=== PATIENT | male | born 1995 | race Caucasian/White ===

== ENCOUNTER 2018-04-09 13:37 | Emergency (ER) | payer MEDICARE, BC ==
[2018-04-09] MEDS: ACETAMINOPHEN 325 MG TAB PO (14:36)
== END 2018-04-09 16:52 | disposition home or self-care (01) ==
LOC: FTE 13:37
DX: S69.91XA Unspecified injury of right wrist, hand and finger(s), initial encounter (principal); J45.909 Unspecified asthma, uncomplicated; W22.8XXA Striking against or struck by other objects, initial encounter; Y92.9 Unspecified place or not applicable
CPT/HCPCS: 73130; 73130-RT; 99283-25

== ENCOUNTER 2018-12-21 23:43 | Inpatient (IN) | payer OTHER, BC ==
[2018-12-21] MEDS: SODIUM CHLORIDE 0.9% 1L BAG IV* (23:55)
[2018-12-22 00:21] LABS: ADD MAN DIFF? NO
[2018-12-22 00:23] LABS: BASOPHILS % 0.3 % (0.0-2.0); EOSINOPHILS # 0.3 10^3/ul (0.0-0.5); EOSINOPHILS % 3.1 % (0.0-7.0); HEMATOCRIT 44.8 % (42.0-52.0); HEMOGLOBIN 14.6 g/dl (14.0-18.0); LYMPHOCYTES # 1.2 10^3/ul (0.8-2.9); LYMPHOCYTES % 13.5 % (15.0-51.0); MEAN CORPUSCULAR HEMOGLOBIN 27.1 pg (29.0-33.0); MEAN CORPUSCULAR HGB CONC 32.6 g/dl (32.0-37.0); MEAN CORPUSCULAR VOLUME 83.1 fl (82.0-101.0); MEAN PLATELET VOLUME 9.5 fl (7.4-10.4); MONOCYTE # 0.6 10^3/ul (0.3-0.9); MONOCYTES % 6.6 % (0.0-11.0); NEUTROPHIL # 6.7 10^3/ul (1.6-7.5); PLATELET COUNT 349 10^3/UL (140-415); RED BLOOD COUNT 5.39 10^6/ul (4.70-6.10); RED CELL DISTRIBUTION WIDTH 13.5 % (11.5-14.5)
[2018-12-22 00:23] LABS: WHITE BLOOD COUNT 8.8 10^3/ul (4.8-10.8)
[2018-12-22 00:41] LABS: ALANINE AMINOTRANSFERASE 73 IU/L (13-69); ALBUMIN 4.7 g/dl (3.3-4.9); ALBUMIN/GLOBULIN RATIO 1.27; ALKALINE PHOSPHATASE 126 IU/L (42-121); ANION GAP 14 (5-13); ASPARTATE AMINO TRANSFERASE 54 IU/L (15-46); BILIRUBIN,INDIRECT 0.4 mg/dl (0-1.1); BILIRUBIN,TOTAL 0.4 mg/dl (0.2-1.3); BLOOD UREA NITROGEN 13 mg/dl (7-20); CALCIUM 9.6 mg/dl (8.4-10.2); CARBON DIOXIDE 23 mmol/L (21-31); CHLORIDE 102 mmol/L (97-110); CREATININE 0.98 mg/dl (0.61-1.24); Estimated GFR > 60 mL/min (>60); GLUCOSE 118 mg/dl (70-220); POTASSIUM 3.9 mmol/L (3.5-5.1); SODIUM 139 mmol/L (135-144); TOTAL PROTEIN 8.4 g/dl (6.1-8.1)
[2018-12-22 00:45] LABS: LACTIC ACID 2.4 mmol/L (0.5-2.0)
[2018-12-22 00:51] LABS: TROPONIN-I 0.015 ng/ml (0.000-0.120)
[2018-12-22 01:02] LABS: INR 0.95; PROTIME 12.8 Sec (11.9-14.9)
[2018-12-22 01:03] LABS: PARTIAL THROMBOPLASTIN TIME 31.9 Sec (23.0-35.0)
[2018-12-22] MEDS: CEFEPIME 2GM/50 ML (PMX) 50 ML IVPB (01:15)
[2018-12-22] MEDS: ONDANSETRON 4 MG INJ IV (01:25)
[2018-12-22] MEDS: morphine 4 MG/ML VIAL IV (01:25)
[2018-12-22] MEDS: VANCOMYCIN 1 GM (PMX) 250 ML IVPB (01:33)
[2018-12-22 02:00] LABS: ADD UMIC YES; UR ASCORBIC ACID NEGATIVE (NEGATIVE); UR BILIRUBIN (Dip) NEGATIVE (NEGATIVE); UR BLOOD (Dip) 1+ mg/dL (NEGATIVE); UR CLARITY CLEAR (CLEAR); UR COLOR YELLOW (YELLOW); UR GLUCOSE (Dip) NEGATIVE (NEGATIVE); UR KETONES (Dip) NEGATIVE (NEGATIVE); UR LEUKOCYTE ESTERASE (Dip) NEGATIVE Leu/ul (NEGATIVE); UR NITRITE (Dip) NEGATIVE (NEGATIVE); UR RBC 1 /HPF (0-5); UR SPECIFIC GRAVITY (Dip) 1.015 (1.003-1.030); UR TOTAL PROTEIN (Dip) NEGATIVE (NEGATIVE); UR UROBILINOGEN (Dip) NEGATIVE (NEGATIVE); UR WBC 1 /HPF (0-5)
[2018-12-22 03:51] LABS: LACTIC ACID 1.2 mmol/L (0.5-2.0)
[2018-12-22] MEDS ORDERED: HYDROCODONE/APAP (5/325) TAB PO (04:30)
[2018-12-22] MEDS ORDERED: NACL 0.9% 3 ML SYG IV (04:30)
[2018-12-22] MEDS ORDERED: VANCOMYCIN IV PER PHARMACY XX (06:30)
[2018-12-22 06:31] LABS: LACTIC ACID 0.9 mmol/L (0.5-2.0)
[2018-12-22] MEDS: VANCOMYCIN HCL 1.75 GM in SOD CHLORIDE 0.9% 500 ML IVPB (08:06)
[2018-12-22] MEDS: HYDROCODONE/APAP (5/325) TAB PO (08:14)
[2018-12-22] MEDS: HEPARIN 5,000 UNIT/1 ML VIAL SC ×2 (08:16→20:45)
[2018-12-22] MEDS ORDERED: CEFEPIME 1GM/50 ML (PMX) 50 ML IVPB (09:00)
[2018-12-22] MEDS: CEFEPIME 1GM/50 ML (PMX) 50 ML IVPB (12:41)
[2018-12-22] MEDS ORDERED: IBUPROFEN 400 MG TAB PO (18:00)
[2018-12-22] MEDS: HYDROmorphONE 2 MG TAB PO (18:53)
[2018-12-22] MEDS: DULOXETINE 30 MG CAP DR PO (20:43)
[2018-12-22 22:12] LABS: AMPHETAMINE/METHAMPHETAMINE Negative (NEGATIVE); BARBITURATES Negative (NEGATIVE); BENZODIAZEPINES Negative (NEGATIVE); CANNABINOIDS Negative (NEGATIVE); COCAINE Negative (NEGATIVE); OPIATES Positive (NEGATIVE)
[2018-12-22] MEDS: ACETAMINOPHEN 325 MG TAB PO (22:59)
[2018-12-23] MEDS: ONDANSETRON 4 MG INJ IV ×2 (05:20→12:10)
[2018-12-23] MEDS: ACETAMINOPHEN 325 MG TAB PO ×2 (05:21→17:27)
[2018-12-23 06:09] LABS: ADD MAN DIFF? NO
[2018-12-23 06:14] LABS: WHITE BLOOD COUNT 7.2 10^3/ul (4.8-10.8)
[2018-12-23 06:14] LABS: BASOPHILS % 0.6 % (0.0-2.0); EOSINOPHILS # 0.4 10^3/ul (0.0-0.5); EOSINOPHILS % 5.8 % (0.0-7.0); HEMATOCRIT 41.3 % (42.0-52.0); HEMOGLOBIN 13.6 g/dl (14.0-18.0); LYMPHOCYTES # 1.4 10^3/ul (0.8-2.9); LYMPHOCYTES % 18.9 % (15.0-51.0); MEAN CORPUSCULAR HGB CONC 32.9 g/dl (32.0-37.0); MEAN CORPUSCULAR VOLUME 82.1 fl (82.0-101.0); MEAN PLATELET VOLUME 10.2 fl (7.4-10.4); MONOCYTE # 0.8 10^3/ul (0.3-0.9); MONOCYTES % 10.6 % (0.0-11.0); NEUTROPHIL # 4.6 10^3/ul (1.6-7.5); NEUTROPHILS % 63.8 % (39.0-77.0); PLATELET COUNT 295 10^3/UL (140-415); RED BLOOD COUNT 5.03 10^6/ul (4.70-6.10); RED CELL DISTRIBUTION WIDTH 13.8 % (11.5-14.5)
[2018-12-23] MEDS: LEVOTHYROXINE 150 MCG TAB PO (06:45)
[2018-12-23 07:04] LABS: ALANINE AMINOTRANSFERASE 80 IU/L (13-69); ALBUMIN 4.1 g/dl (3.3-4.9); ALBUMIN/GLOBULIN RATIO 1.28; ALKALINE PHOSPHATASE 94 IU/L (42-121); ANION GAP 12 (5-13); ASPARTATE AMINO TRANSFERASE 56 IU/L (15-46); BILIRUBIN,INDIRECT 0.7 mg/dl (0-1.1); BILIRUBIN,TOTAL 0.7 mg/dl (0.2-1.3); BLOOD UREA NITROGEN 12 mg/dl (7-20); CALCIUM 9.7 mg/dl (8.4-10.2); CARBON DIOXIDE 24 mmol/L (21-31); CHLORIDE 102 mmol/L (97-110); CREATININE 0.99 mg/dl (0.61-1.24); Estimated GFR > 60 mL/min (>60); GLUCOSE 92 mg/dl (70-220); MAGNESIUM 1.6 mg/dl (1.7-2.5); PHOSPHORUS 4.5 mg/dl (2.5-4.9); POTASSIUM 3.8 mmol/L (3.5-5.1); SODIUM 138 mmol/L (135-144); TOTAL PROTEIN 7.3 g/dl (6.1-8.1)
[2018-12-23 07:14] LABS: HEPATITIS B SURFACE ANTIGEN NEGATIVE (NEGATIVE)
[2018-12-23 07:32] LABS: HEPATITIS B CORE ANTIBODY NEGATIVE (NEGATIVE); HEPATITIS C VIRAL ANTIBODY NEGATIVE (NEGATIVE)
[2018-12-23] MEDS: DULOXETINE 30 MG CAP DR PO (08:18)
[2018-12-23] MEDS: HEPARIN 5,000 UNIT/1 ML VIAL SC (08:28)
[2018-12-23] MEDS: DOCUSATE SODIUM 100 MG CAP PO (08:29)
[2018-12-23] MEDS: HYDROmorphONE 2 MG TAB PO (09:51)
[2018-12-23 10:22] LABS: HEPATITIS B SURFACE ANTIBODY POSITIVE (NEGATIVE)
[2018-12-23] MEDS: VANCOMYCIN 1 GM (PMX) 250 ML IVPB (12:04)
[2018-12-23] MEDS: LACTOBACILLUS RHAMNOSUS CAP PO (12:10)
[2018-12-23] MEDS: MAGNESIUM SULFATE 2 GM/50 ML 50 ML IVPB (14:25)
== END 2018-12-23 19:15 | disposition home or self-care (01) | DRG 866 ==
LOC: E/R 23:43 → 2NE 12-22 01:46
DX: B34.9 Viral infection, unspecified (principal); E87.2 Acidosis; R65.10 Systemic inflammatory response syndrome (SIRS) of non-infectious origin without acute organ dysfunction; Z68.41 Body mass index [BMI] 40.0-44.9, adult; E66.01 Morbid (severe) obesity due to excess calories; K76.0 Fatty (change of) liver, not elsewhere classified; E03.9 Hypothyroidism, unspecified; G43.909 Migraine, unspecified, not intractable, without status migrainosus
CPT/HCPCS: 36415; 70553; 71045; 74018; 76705; 80053; 80307; 81001; 83605; 83735; 84100; 84443; 84484; 85025; 85610; 85730; 86704; 86706; 86803; 87040; 87086; 87340; 93005; 93970; 96374; 96375; 99291-25

== ENCOUNTER → 2019-01-27 | Emergency (ER) | payer SELFPAY, BC, OTHER | END | disposition left against medical advice (07) | LOC: E/R 16:52 | DX: Z53.21 Procedure and treatment not carried out due to patient leaving prior to being seen by health care provider (principal) ==